=== PATIENT | female | born 1985 | race Hispanic/Latino ===

== ENCOUNTER 2023-11-09 18:07 | Inpatient (IN) | payer OTHER ==
[2023-11-09 18:23] VITALS: BMI 34.2
[2023-11-09] MEDS ORDERED: Misoprostol 200 MCG TAB PR PRN (19:46)
[2023-11-09] MEDS ORDERED: Ondansetron PF 4 MG/2 ML Vial IVP PRN (19:46)
[2023-11-09] MEDS ORDERED: Promethazine HCl 25 MG/ML VIAL IM PRN (19:46)
[2023-11-09] MEDS ORDERED: Ibuprofen 800 MG TAB PO PRN (19:46)
[2023-11-09] MEDS ORDERED: HYDROcodone/Acetaminophen 5/325 mg Tablet PO PRN (19:46)
[2023-11-09] MEDS ORDERED: hydrALAZINE 20 MG/ML VIAL SLOW IVP PRN (19:46)
[2023-11-09] MEDS ORDERED: Carboprost 250 MCG/ML AMP IM PRN (19:46)
[2023-11-09] MEDS ORDERED: Lidocaine 1% (PF) 30 ML VIAL SC PRN (19:46)
[2023-11-09] MEDS ORDERED: fentaNYL 50 mcg/mL 1 mL Vial SLOW IVP PRN (19:46)
[2023-11-09] MEDS ORDERED: Diphenoxylate HCl/Atropine Tablet PO PRN (19:46)
[2023-11-09] MEDS ORDERED: Acetaminophen 500 MG TAB PO PRN (19:46)
[2023-11-09] MEDS ORDERED: Zolpidem Tartrate 5 MG TAB PO PRN (19:46)
[2023-11-09 20:02] LABS: Hematocrit 36.5 % (34.9-44.5); Hemoglobin 12.7 g/dL (12.0-15.5); Mean Corpuscular HGB CONC 34.8 g/dL (32.0-36.0); Mean Corpuscular Hemoglobin 30.7 pg (27.0-33.0); Mean Corpuscular Volume 88.2 fL (81.6-98.3); Mean Platelet Volume 12.4 fL (7.4-10.4); Platelet Count 124 10x3/uL (150-450); RBC Distribution Width 13.4 % (11.5-14.5); Red Blood Cell (RBC) Count 4.14 10x6/uL (3.90-5.03)
[2023-11-09 20:29] LABS: HBsAg Index 0.14 S/CO (0-0.99); Hep B Surf Ag - L&D Non-Reactive S/CO (NonReactive)
[2023-11-09 20:30] LABS: Syphilis Antibody Nonreactive (Nonreactive); Syphilis Antibody Index 0.07 S/CO (<1.00 Non-Reactive)
[2023-11-09 20:57] LABS: Glucose 97 mg/dL (70-105)
[2023-11-10] MEDS: Oxytocin 30 units/NS 500 ML 500 ML IV SCH (04:22)
[2023-11-10] MEDS ORDERED: Lidocaine 1% (PF) 30 ML VIAL SC PRN (04:45)
[2023-11-10] MEDS: Penicillin G Potassium 5 MILL.UNITS in Sodium Chloride 0.9% 100 ML IVPB SCH (05:09)
[2023-11-10] MEDS: Penicillin G 2.5 MILL.units 2.5 MILL.UNITS in Premix 1 BAG IVPB SCH (08:35)
[2023-11-10] MEDS: fentaNYL/Ropivacaine Epidural 100 ML ONE (09:20)
[2023-11-10] MEDS ORDERED: Naloxone HCl 0.4 mg/ml Vial IVP PRN ×2 (09:44)
[2023-11-10] MEDS ORDERED: Lactated Ringer's 500 ML IV PRN (09:44)
[2023-11-10] MEDS ORDERED: ePHEDrine Sulfate 50 MG/10 ML VIAL SLOW IVP PRN (09:44)
[2023-11-10] MEDS ORDERED: diphenhydrAMINE 50 MG/ML VIAL IVP PRN (09:44)
[2023-11-10] MEDS ORDERED: Moisturizing Cream (Eucerin) 113 GM JAR TOP PRN (09:44)
[2023-11-10] MEDS ORDERED: Acetaminophen 325 MG TAB PO PRN (09:44)
[2023-11-10] MEDS ORDERED: Communication Order-Pharmacy FS SCH (09:45)
[2023-11-10] MEDS: Ondansetron PF 4 MG/2 ML Vial IVP PRN (13:00)
[2023-11-10] MEDS: fentaNYL 2 mcg/Ropivacaine 0.2% Epidural 100 ML CADD EPIDURAL SCH (18:56)
[2023-11-10] MEDS: Promethazine HCl 25 MG/ML VIAL IM PRN (19:46)
[2023-11-10] MEDS ORDERED: Ondansetron PF 4 MG/2 ML Vial IVP PRN (21:25)
[2023-11-10] MEDS: Lactated Ringer's 1,000 ML IV SCH (21:33)
[2023-11-11] MEDS: Oxytocin 30 units/NS 500 ML 500 ML IV SCH (10:42)
[2023-11-11] MEDS ORDERED: Bicitra 30 ML UDCUP PO PRN (11:50)
[2023-11-11] MEDS ORDERED: Famotidine/PF 20 mg/2ml Vial SLOW IVP PRN (11:50)
[2023-11-11] MEDS ORDERED: Azithromycin 500 MG in Sodium Chloride 0.9% 250 ML 250 ML IVPB SCH (12:00)
[2023-11-11] MEDS ORDERED: CEFAZOLIN 2 GM in Sodium Chloride 0.9% 100 ML IVPB SCH (12:00)
[2023-11-11] MEDS: Methylergonovine 0.2 MG/ML VIAL IM PRN (12:27)
[2023-11-11] MEDS ORDERED: Naloxone HCl 0.4 mg/ml Vial IV PRN (13:06)
[2023-11-11] MEDS ORDERED: Meperidine HCl/PF 25 MG (1 mL) VIAL SLOW IVP PRN (13:06)
[2023-11-11] MEDS ORDERED: Naloxone HCl 0.4 mg/ml Vial IVP PRN ×2 (13:06)
[2023-11-11] MEDS ORDERED: Moisturizing Cream (Eucerin) 113 GM JAR TOP PRN (13:06)
[2023-11-11] MEDS ORDERED: Promethazine HCl 25 MG/ML VIAL IM PRN ×2 (13:06→15:34)
[2023-11-11] MEDS ORDERED: diphenhydrAMINE 50 MG/ML VIAL IVP PRN (13:06)
[2023-11-11] MEDS ORDERED: Ondansetron PF 4 MG/2 ML Vial IVP PRN ×3 (13:06→15:34)
[2023-11-11] MEDS ORDERED: HYDROmorphone 0.5 MG/0.5 ML SYRINGE SLOW IVP PRN (13:06)
[2023-11-11] MEDS ORDERED: fentaNYL 50 mcg/mL 1 mL Vial SLOW IVP PRN (13:06)
[2023-11-11] MEDS ORDERED: Communication Order-Pharmacy FS SCH (13:15)
[2023-11-11] MEDS: Ketorolac Tromethamine 30 MG (1 mL) VIAL IVP SCH (15:17)
[2023-11-11] MEDS ORDERED: Acetaminophen 325 MG TAB PO PRN (15:34)
[2023-11-11] MEDS ORDERED: hydrALAZINE 20 MG/ML VIAL SLOW IVP PRN (15:34)
[2023-11-11] MEDS ORDERED: Zolpidem Tartrate 5 MG TAB PO PRN (15:34)
[2023-11-11] MEDS ORDERED: diphenhydrAMINE 25 MG CAP PO PRN (15:34)
[2023-11-11] MEDS ORDERED: Lanolin Ointment 7 GM TUBE TOP PRN (15:34)
[2023-11-11] MEDS: Erythromycin Base 0.5% Oint 1 GM TUBE ONE (15:35)
[2023-11-11] MEDS: Phytonadione Neonatal 1 MG/0.5 ML AMP ONE (15:35)
[2023-11-11] MEDS: fentaNYL 50 mcg/mL 1 mL Vial ONE ×3 (15:35→15:36)
[2023-11-11] MEDS: Hepatitis B Vaccine 10 MCG/0.5 ML SYR ONE (15:35)
[2023-11-11] MEDS: Azithromycin 500 MG VIAL ONE (15:36)
[2023-11-11] MEDS: Phenylephrine 40 MG/NS 250 ML 250 ML ONE (15:36)
[2023-11-11] MEDS: PHENYLEPHRINE-NS 100 MCG/ML 10 ML SYRINGE ONE ×2 (15:36)
[2023-11-11] MEDS: Tranexamic Acid 1,000 MG/10 ML VIAL ONE (15:36)
[2023-11-11] MEDS: Lidocaine 2% PF 100 mg/5 ml Syringe ONE (15:36)
[2023-11-11] MEDS: Methylergonovine 0.2 MG/ML VIAL ONE (15:36)
[2023-11-11] MEDS: Morphine PF 10 MG/10 ML VIAL ONE (15:36)
[2023-11-11] MEDS: CEFAZOLIN 2 GM VIAL ONE (15:36)
[2023-11-11] MEDS: Oxytocin 10 UNITS/ML VIAL ONE (15:36)
[2023-11-11 16:01] LABS: Analyzer IN Cardio CS NICU; RapidComm Collect By RN; pH (Cord, venous) 7.332 (7.250-7.350)
[2023-11-11] MEDS: Boostrix 0.5 ML (Tdap) VIAL (>/=7 yrs of age) IM ONE (16:24)
[2023-11-11] MEDS: metFORMIN 500 MG TAB PO SCH (17:03)
[2023-11-11] MEDS: Ketorolac Tromethamine 30 MG (1 mL) VIAL IVP PRN (21:18)
[2023-11-11] MEDS: Docusate 100 MG CAP PO SCH (21:18)
[2023-11-12 03:54] LABS: Hematocrit 32.4 % (34.9-44.5); Hemoglobin 10.8 g/dL (12.0-15.5); Mean Corpuscular HGB CONC 33.3 g/dL (32.0-36.0); Mean Corpuscular Hemoglobin 30.4 pg (27.0-33.0); Mean Corpuscular Volume 91.3 fL (81.6-98.3); Mean Platelet Volume 11.2 fL (7.4-10.4); Platelet Count 139 10x3/uL (150-450); RBC Distribution Width 13.5 % (11.5-14.5); Red Blood Cell (RBC) Count 3.55 10x6/uL (3.90-5.03); White Blood Cell (WBC) Count 7.4 10x3/uL (3.5-10.5)
[2023-11-12] MEDS: HYDROcodone/Acetaminophen 5/325 mg Tablet PO PRN ×2 (06:09→10:56)
[2023-11-12] MEDS: Ferrous Sulfate 325 MG TAB PO SCH (08:44)
[2023-11-12] MEDS: Simethicone Chewable 80 MG TAB PO PRN (10:59)
[2023-11-12] MEDS: Ibuprofen 800 MG TAB PO SCH (12:34)
[2023-11-12] MEDS: Bisacodyl 10 MG SUPP PR PRN (21:18)
[2023-11-13 12:11] VITALS: BP 134/78; TEMP 98.5
== END 2023-11-13 12:55 | disposition home or self-care (01) | DRG 788 ==
LOC: CSHLD 18:07 → CSHPED 11-11 15:50
PROVIDERS: ADMIT Student in an Organized Health Care Education/Training Program; ATTEND Student in an Organized Health Care Education/Training Program
PROC: 10D00Z1 Extraction of Products of Conception, Low, Open Approach (ICD-10-PCS; principal; 2023-11-11)
DX: O24.92 Unspecified diabetes mellitus in childbirth (principal); Z37.0 Single live birth; Z3A.38 38 weeks gestation of pregnancy; Z79.84 Long term (current) use of oral hypoglycemic drugs; O62.1 Secondary uterine inertia; O76 Abnormality in fetal heart rate and rhythm complicating labor and delivery
CPT/HCPCS: 36415; 51702; 82805; 82947; 85027; 86780; 86850; 86900; 86901; 87340; J1885; J2001; J2210; J2274; J2405; J2540; J2550; J2590; J3010; J3490; J7120